=== PATIENT | male | born 1980 | race African-American/Black ===

== ENCOUNTER 2020-11-18 20:22 | Emergency (ER) | payer MEDICAID, OTHER ==
[~2020-11-18] VITALS: Ht 182.9 cm; Wt 81.6 kg
[2020-11-19 01:54] VITALS: BP 131/88
[2020-11-19] MEDS ORDERED: ACETAMINOPHEN 500 MG TAB PO ONE (02:00)
[2020-11-19] MEDS ORDERED: IBUPROFEN 800 MG TAB PO ONE (02:00)
== END 2020-11-19 02:01 | disposition home or self-care (01) ==
LOC: ER 20:26
DX: S43.402A Unspecified sprain of left shoulder joint, initial encounter (principal); M62.838 Other muscle spasm; M54.2 Cervicalgia; V43.52XA Car driver injured in collision with other type car in traffic accident, initial encounter; Y93.89 Activity, other specified; Y92.410 Unspecified street and highway as the place of occurrence of the external cause; Y99.8 Other external cause status
CPT/HCPCS: 72040; 73030